=== PATIENT | female | born 1965 | race Caucasian/White ===

== ENCOUNTER 2024-10-11 08:09 | Emergency (ER) | payer BC, SELFPAY ==
[2024-10-11 08:12] VITALS: BP 127/76
[2024-10-11 08:31] LABS: Hematocrit 43.7 % (37.0-47.0); Hemoglobin 14.9 g/dL (12.0-16.0); Mean Corp Hgb Conc. 34.1 g/dL (33.0-37.0); Mean Corpuscular Volume 97.1 fL (81.0-99.0); Nucleated Red Blood Cells % 0 %; Platelet Count 245 10^3/uL (130-400); Red Cell Dist. Width 12.5 % (11.5-14.5)
[2024-10-11 08:43] LABS: INR 0.98; PT 13.2 Sec (11.4-14.6)
[2024-10-11 08:44] LABS: APTT 26.5 Sec (23.4-35.0)
[2024-10-11 08:46] LABS: ALT (SGPT) 18 U/L (0-35); AST (SGOT) 20 U/L (14-36); Albumin 4.3 g/dl (3.5-5.0); Alkaline Phosphatase 63 U/L (38-126); Blood Urea Nitrogen 12 mg/dl (7-17); Calcium 9.4 mg/dl (8.4-10.2); Carbon Dioxide 27 mmol/L (22-30); Chloride 108 mmol/L (98-107); Glucose 96 mg/dl (70-99); Potassium 3.6 mmol/L (3.5-5.1); Sodium 141 mmol/L (135-145); Total Protein 7.1 g/dl (6.3-8.2); eGFR > 60.00
--- NOTE | 2024-10-11 11:31 | ED.GENMED ---
History of Present Illness
General
Chief Complaint: Abdominal Symptoms
Source: patient
Exam Limitations: none
Time Seen by Provider: 10/11/24 11:06
Nursing documentation reviewed up to this point in time: agreed with
History of Present Illness
History of Present Illness:
Patient is a 59-year-old female who presents to the emergency department after episode of vomiting last night. Patient says that she took a vitamin and then shortly after felt nauseous and had one episode of vomiting. She thought she noticed some
black flakes in her vomit, and after speaking with her son became concerned that she was bleeding. Patient sees that she has felt completely at her baseline since the one episode of vomiting.
She denies any chest pain or shortness of breath. No lightheadedness or dizziness. No cough or hemoptysis. No additional episodes of vomiting. No hematochezia or melena.
Patient denies any alcohol use or NSAID use. She is not on any anticoagulation. No history of G.I. bleeding.
Patient does note that she was somewhat recently on Ozempic, although came off of it a few months ago. She says that her appetite has not yet returned to normal. She frequently feels nauseous.
Past History
Past History
ED Past Medical History: Other (Migraine headaches, recent torn ligaments in her left ankle. Chronic back pain.)
ED Past Surgical History: Other (Noncontributory)
Social History
Tobacco: Non-smoker
Alcohol: Occasional
Drug: None
Personal:
Living: with family
Employment: Employed
Family History
Family History: Other (Noncontributory)
Review of Systems
Review of Systems
Allergies reviewed?: Yes
All Other Systems: ROS reviewed and negative except as documented in HPI and ROS
Phy Exam
Physical Exam
Physical Exam:
Vitals: Patient's vital signs are stable. Afebrile
General: Patient is very well appearing, no acute distress
Skin: Warm and dry, no rashes or lesions
Head: Normocephalic, atraumatic
Eyes: Sclera nonicteric.
Throat: Protecting airway
Neck: Normal ROM, no cervical spine tenderness, no meningismus
Cardiac: Regular rate and rhythm, no murmurs.
Pulm: Normal respiratory effort, no wheezes, rales, rhonchi heard on exam
.
Abdomen: Abdomen soft and nontender.
Extremities: No evidence of cyanosis or edema. 2+ palpable DP pulses bilaterally.
Neuro: AAOx3. Grossly intact.
Psychiatric: Normal affect.
Course
Orders/Labs/Results
Orders:
Orders
10/11/24 08:17
Type+Screen Urgent
Complete Blood Count/With Diff Urgent
Comprehensive Metabolic Panel Urgent
Direct Bilirubin Urgent
Comment: ADD ON
Lipase Urgent
Comment: ADD ON
PTT Urgent
Prothrombin Time Urgent
10/11/24 11:27
Add On- LAB Urgent
Tests Added?: direct bilirubin, lipase
US Abdomen Complete/Upper Urgent
Comment:
Reason For Exam: Nasuea, anorexia, upper abdominal discomfort
10/11/24 12:43
Urinalysis Reflex To Culture Urgent
Date Specimen was Collected: 10/11/24
Time Specimen was Collected: 12:40
Urine Microscopic Reflex Cult Urgent
10/11/24 13:07
ABO2 Urgent
BBK Wristband Number:
Associate notified that ABO2 has been ordered: [id number]
Date: 10/11/24
Time: 08:28
Service Specialist ID: [id number]
Abnormal Lab Results
10/11/24 10/11/24
08:17 12:43
MCH 33.1 H pg
(27.0-31.0)
Absolute Monos (auto) 0.7 H 10^3/uL
(0.1-0.6)
Monocytes % 10.1 H %
(1.7-9.3)
Chloride 108 H mmol/L
(98-107)
Total Bilirubin 1.9 H mg/dl
(0.2-1.3)
Ur Occult Blood Reflex 1+ A
(Negative)
Urine RBC 3-6 A /HPF
(0-2)
Urine Bacteria (Reflex) Few A
(Negative)
10/11/24 08:17
10/11/24 08:17
Vital Signs
Initial and Last Documented VS:
Initial Vital Signs
Temp Pulse Resp BP Pulse Ox
98.1 F 86 16 127/76 99
10/11/24 08:12 10/11/24 08:12 10/11/24 08:12 10/11/24 08:12 10/11/24 08:12
Last Documented Vital Signs
Temp Pulse Resp BP Pulse Ox
98.1 F 71 16 109/69 98
10/11/24 08:12 10/11/24 12:30 10/11/24 12:30 10/11/24 12:30 10/11/24 12:30
MDM/Problems Addressed
Differential Diagnosis Includes:
Not limited to: GERD, biliary colic, medication side effects, gastric ulcer, upper GI bleeding. etc
MDM/Problems Addressed:
60-year-old female presenting after episode of vomiting last night consisting of black specks. She is completely asymptomatic at this time. No lightheadedness, dizziness, shortness of breath. No risk factors for G.I. bleeding. No oral
anticoagulation.
Patient hemodynamically stable on arrival. Physical exam as above. Labs were sent in triage without any clinically significant abnormalities. Hemoglobin is stable. Chemistry unremarkable. BUN not elevated. An abdominal US was obtained giving
patients persistent nausea and anorexia after Ozempic, which showed gallbladder polyps however, no other acute abnormalities.
Ultimately � patient asymptomatic and very well appearing. Work up in emergency department negative. Do not suspect acute G.I. bleeding. Feel stable for discharge home with strict return precautions, primary care follow up. Patient comfortable with
plan.
Chronic conditions affecting care:
N/A
Acute Exacerbation and/or Progression of Chronic Illness:
N/A
*Radiology
Radiology exam reviewed: radiology read reviewed
*Pulse Oximetry
SaO2: 99
Oxygen Mode of Delivery: Room air
Patient hypoxic: no
*EKG
Interpreted by ED Provider?: NA
*Steam Gigger Interpretation
Rate: Steam Gigger- N/A
*Critical Care Note
Total Time (30-74mins, 75-104mins- exclusive of procedures): Not Applicable
ED Attending Note
-
Portions of this chart may have been created with voice recognition software.� Occasional wrong word or��sound alike� substitutions may have occurred due to the inherent limitations of voice recognition software.
Discharge Plan
Departure
Patient Disposition: Home (Routine Discharge)
Date of Disposition: 10/11/24
Time of Disposition: 13:53
Patient with high blood pressure during this ER visit?: No
Condition: Good
Discharge Problem:
Vomiting
Instructions: Nausea and vomiting in adults - ED discharge instructions
Prescriptions:
No Action
meloxicam 7.5 MG tablet
15 mg PO DAILYPRN PRN (Reason: back pain)
Theragen Tablet
1 tab PO DAILY
cyclobenzaprine [Flexeril] 5 mg Tablet
5 mg PO DAILYPRN PRN (Reason: back pain)
Ajovy Syringe 225 mg/1.5 mL Syringe
225 mg SC QMONTH
Ubrelvy 100 mg Tablet
100 mg PO DAILYPRN PRN (Reason: migraines)
Referrals:
Iza Contreras, DO [Active, Gastroenterology]
UNKNOWN - PT DOES,NOT KNOW [Family Provider]
Activity Restrictions/Additional Instructions:
RETURN TO THE EMERGENCY DEPARTMENT WITH ANY FEVERS, CHEST PAIN/SHORTNESS OF BREATH, COUGHING UP BLOOD, VOMITING BLOOD, BLOODY/DARK STOOLS, LIGHTHEADEDNESS/DIZZINESS, ABDOMINAL PAIN OR PERSISTENT LACK OF APPETITE, OR ANY OTHER CONCERNS
- As discussed�your lab work showed no acute abnormalities. Your hemoglobin was normal. Your bilirubin was mildly elevated. Your urine showed no evidence of infection. Your ultrasound did show a few polyps of the gallbladder.
- It is important to stay well-hydrated. Avoid NSAIDs.
- Follow-up with your primary care for further evaluation/management to ensure that symptoms are improving.-The patient has been provide if you do need to follow-up with a GI doctor
Monitor your symptoms very closely return to the emergency department with any acute worsening/new symptoms or any other concerns
Interventions
Interventions:
*Risk Screen - Suicide Last Done: 10/11/24 08:12
*General Assessment Last Done: 10/11/24 11:46
*Neglect/Abuse Screening Last Done: 10/11/24 08:12
*ED- Fall Risk Assessment Last Done: 10/11/24 11:46
*ED COVID-19 Vaccine History Last Done: 10/11/24 11:46
*Nursing Disposition Last Done: 10/11/24 14:10
UZ-Jzejfb-Mllmzupugl Assessment Last Done: 10/11/24 12:48
Discharge Date and Time
Discharge Date/Time: 10/11/24 14:10
Print Language: MALTESE
[2024-10-11 11:46] VITALS: BMI 25.6
[2024-10-11 12:27] LABS: Lipase 115 U/L (23-300)
[2024-10-11 12:30] VITALS: BP 109/69
--- NOTE | 2024-10-11 12:30 | EDRN ---
Pt OOB to BR at this time to get urine spec.
--- NOTE | 2024-10-11 12:47 | EDRN ---
Urine spec obtained and sent.
[2024-10-11 12:57] LABS: Urine Character Clear (Clear)
[2024-10-11 14:06] LABS: Urine White Cell 0-2 /HPF (0-5)
== END 2024-10-11 14:10 | disposition home or self-care (01) ==
LOC: EMR 08:09
PROVIDERS: Emergency Medicine; Physician Assistant; EMERGENCY PHYSICIAN Student in an Organized Health Care Education/Training Program
DX: R11.2 Nausea with vomiting, unspecified (principal); G89.29 Other chronic pain; K82.4 Cholesterolosis of gallbladder
CPT/HCPCS: 99284; 76700; 80053; 81003; 81015; 82248; 83690; 85025; 85610; 85730; 86850; 86900; 86901